=== PATIENT | female | born 1980 | race Caucasian/White ===

== ENCOUNTER 2019-08-04 01:53 | Emergency (ER) | payer SELFPAY ==
[2019-08-04] MEDS ORDERED: DEXAMETHASONE SOD PHOSPHATE 10 MG/1 ML VIAL IM ONE (02:21)
--- NOTE | 2019-08-04 02:21 | PDOC ---
Attending Attestation - Resident Resident Name: StephanieWilliam - ED Attending Attestation I have performed the following: I have examined & evaluated the patient, The case was reviewed & discussed with the resident, I agree w/resident's findings & plan - HPI HPI: 08/04/19 02:20 Pt ate at [employer] (where nutella crepes were being made) and she has a walnut and hazelbut allergy. She had benadryl and now face is puffy. She has had this in the past. She has no tongue or throat involvement. She has no other complaints. Pt took a benadryl and now her eyes are swollen. Pt has had tongue swelling many years ago. Thus we will prescribe epi-pen. - Physicial Exam PE: 08/04/19 03:08 Agree with exam 08/04/19 03:10 Pt has no wheeze and no voice change and no problem swallowing or managing her secretions. Afebrile. Exam is normal other than eyelid swelling - Medical Decision Making 08/04/19 03:10 Home with benadtrl and epipen. Pt given decadron in the ER. Follow with PMD.
--- NOTE | 2019-08-04 02:21 | PDOC ---
History of Present Illness - General Chief Complaint: Allergic Reaction Stated Complaint: ALLERGIC REACTION Time Seen by Provider: 08/04/19 02:07 - History of Present Illness Initial Comments: 08/04/19 02:40 The patient is a 39 year old female with a history walnut allergies who presents for evaluation of an allergic reaction. The patient reports that she consumed food tonight and was unaware that there was walnut in the food. She reports itchy and puffy eyes typical of her allergic reactions. She stated that about 45-50 minutes after the reaction started she took 25mg of benadryl prior to presentation to the ED for further evaluation. She notes improvement in her symptoms after taking the benadryl. She otherwise denies fevers, chills , SOB, chest pain, difficulty breathing, tongue swelling, nausea, vomiting, abdominal pain, or changes with urination or bowel movements. Past History - Past Medical History Allergies/Adverse Reactions: Allergies Allergy/AdvReac Type Severity Reaction Status Date / Time aspirin Allergy Verified 08/04/19 02:10 NSAIDS (Non-Steroidal Allergy Verified 08/04/19 02:10 Anti-Inflamma Sulfa (Sulfonamide Allergy Verified 08/04/19 02:10 Antibiotics) Home Medications: Ambulatory Orders Epinephrine [Epipen] 0.3 mg IJ ONCE PRN #1 auto.injct 08/04/19 Norgestimate-Ethinyl Estradiol [Ortho Tri-Cyclen 28 Tablet] 1 each PO DAILY Asthma: Yes Cancer: No Cardiac Disorders: No Diabetes: No HTN: No Seizures: No Thyroid Disease: No - Suicide/Smoking/Psychosocial Hx Smoking History: Never smoked Have you smoked in the past 12 months: No If you are a former smoker, when did you quit?: 7 years ago Information on smoking cessation initiated: No Hx Alcohol Use: No Drug/Substance Use Hx: No Hx Substance Use Treatment: No Review of Systems - Review of Systems Comments:: 08/04/19 02:43 Constitutional: No fevers, chills, fatigue, malaise HEENT: Eye swelling and itching. No Rhinorrhea, nasal congestion, visual changes Cardiovascular: No chest pain, syncope, palpitations, lightheadedness Respiratory: No Cough, SOB, Hemoptysis, Gastrointestinal: No Abdominal pain, Nausea, Vomiting, Constipation, Diarrhea, Melena Genitourinary: No Dysuria, Frequency, Urgency, Hesitancy, Hematuria, Flank pain Musculoskeletal: No Myalgia, arthralgia Skin: No rashes, itching, bruising, pallor Neurologic: No Headache, Dizziness, Numbness, Weakness, or Tingling Psychiatric: No Hallucinations. No SI or HI *Physical Exam - Vital Signs Last Vital Signs Temp Pulse Resp BP Pulse Ox 97.8 F 70 18 110/51 L 98 08/04/19 02:10 08/04/19 02:10 08/04/19 02:10 08/04/19 02:10 08/04/19 02:10 - Physical Exam Comments: 08/04/19 02:44 General Appearance: Nourished. No Apparent Distress HEENT: EOMI, EVELIN. Periorbital edema noted on exam bilaterally. No laryngeal edema noted on exam. No Pharyngeal Erythema, Tonsillar Exudate, Tonsillar Erythema Neck: No Cervical Lymphadenopathy Respiratory/Chest: Lungs Clear, Normal Breath Sounds. No Crackles, Rales, Rhonchi, Wheezing Cardiovascular: Regular Rhythm, Regular Rate. No Murmur, Gallops, Rubs Gastrointestinal/Abdominal: Normal Bowel Sounds, Soft. No Guarding, Rebound, Tenderness Musculoskeletal: No CVA Tenderness Extremity: Normal Capillary Refill Integumentary: Normal Color, Dry, Warm Neurologic: Fully Oriented, Alert, Normal Mood/Affect, Normal Response, Medical Decision Making - Medical Decision Making 08/04/19 02:44 The patient is a 39 year old female with a history walnut allergies who presents for evaluation of an allergic reaction. Given the patient's history and physical exam, it is likely the patient's symptoms are due to an allergic reaction. We will treat with decadron here in the ED and continue to monitor and reassess. 08/04/19 02:52 The patient was reassessed and reports improvement in their symptoms. We are comfortable discharging the patient home in stable condition with an epipen. Patient and family made aware of impression and plan, return precautions discussed including but not limited to worsening pain or symptoms, fevers, or signs of infection, chest pain, respiratory distress, inability to tolerate oral intake, dehydration, syncope, or neurologic changes. The patient is to follow up with PMD as recommended within 1 week, follow up information provided and the patient will call for an appointment. The patient is to take medications as instructed for duration of time and continue with supportive care , avoid triggers and precipitants. Patient is safe for outpatient follow-up. *DC/Admit/Observation/Transfer Diagnosis at time of Disposition: Allergic reaction Qualifiers: Encounter type: initial encounter Qualified Code(s): T78.40XA - Allergy, unspecified, initial encounter - Discharge Dispostion Disposition: HOME Condition at time of disposition: Stable Decision to Admit order: No - Prescriptions Prescriptions: Epinephrine [Epipen] 0.3 mg IJ ONCE PRN #1 auto.injct PRN Reason: Allergies - Referrals - Patient Instructions Printed Discharge Instructions: DI for Eye Allergic Reaction Additional Instructions: 1) Please follow-up with your primary care doctor in the next 2-3 days. Please call tomorrow to schedule a follow up appointment. If you cannot follow up with your doctor within 1 week please return to the Emergency Department for any urgent issues. 2) If you have any worsening of symptoms or any other concerns, please return to the ER immediately. Return if worsening symptoms including fevers, headache, vomiting, visual or hearing disturbances, abdominal pain, chest pain, shortness of breath, syncope, dehydration, inability to take things by mouth/vomiting, altered mental status, or worsening concerning symptoms. 3) Please continue taking your home medications as directed. Your medications on discharge include Epipen. Side effects may include upset stomach, abdominal pain, vomiting, or diarrhea. Do not drink alcohol with your medications. - Post Discharge Activity
[2019-08-04] MEDS ORDERED: DEXAMETHASONE SOD PHOSPHATE 10 MG/1 ML VIAL ONE (02:29)
[2019-08-04 02:36] VITALS: BP 110/51; PULSE 70; TEMP 97.8; BMI 23.4
== END 2019-08-04 02:58 | disposition home or self-care (01) ==
LOC: JER 01:53
PROC: 3E0233Z Introduction of Anti-inflammatory into Muscle, Percutaneous Approach (ICD-10-PCS; principal; 2019-08-04)
DX: T78.1XXA Other adverse food reactions, not elsewhere classified, initial encounter (principal); L29.8 Other pruritus; X58.XXXA Exposure to other specified factors, initial encounter; Z91.018 Allergy to other foods
CPT/HCPCS: 99281-25; J1100